=== PATIENT | female | born 1980 | race American Indian/Alaskan Native ===

== ENCOUNTER 2022-01-30 10:48 | Inpatient (IN) | payer SELFPAY ==
[2022-01-30] MEDS ORDERED: ASPIRIN 325 MG TAB PO ONE (12:43)
[2022-01-30] MEDS ORDERED: NITROGLYCERIN 2% OINT 1 GM TP ONE (12:43)
[2022-01-30] MEDS ORDERED: ONDANSETRON 4 MG/2 ML INJ IV ONE (12:48)
[2022-01-30] MEDS ORDERED: fentaNYL 100 MCG/2 ML INJ IV ONE (12:48)
--- NOTE | 2022-01-30 12:54 | Emergency Department Report ---
HPI - General Chief Complaint: Chest Pain Time Seen by Provider: 01/30/22 12:24 - HPI HPI: Room 23 Patient is a 41-year-old female present with a chief complaint of headache and chest pain. The patient states she was at the airport about to return to [place] when she developed a headache with nausea vomiting. The patient states at the airport she had a near syncopal episode and then developed heaviness in her chest associated with feeling clammy. Patient denies shortness of breath but admits to pleurisy. Patient states a few hours ago she developed a nonproductive cough. Patient denies history of fever or rhinorrhea. Patient states she has not been vaccinated against COVID. Patient denies any known sick contacts. Patient states she's never had a stress test or cardiac catheterization. 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 Vocal cord polyps removal - Family History Family history: no significant - Social History Smoking Status: Never Smoker Substance Use Type: None (Denies illicit drug use), Alcohol (Occasional) - Medications Home Medications: Home Medications Medication Instructions Recorded Confirmed Last Taken Type Azithromycin [Zithromax Z-NEELA] 250 mg PO DAILY #6 tablet 10/07/13 Unknown Rx ED Review of Systems ROS: Stated complaint: CHEST HEAVINESS,DIZZINESS,HEADACHE Other details as noted in HPI Constitutional: diaphoresis. denies: fever Eyes: denies: eye pain ENT: denies: throat pain Respiratory: cough. denies: shortness of breath Cardiovascular: chest pain Endocrine: no symptoms reported Gastrointestinal: nausea, vomiting Genitourinary: denies: dysuria Musculoskeletal: denies: back pain Neurological: headache Physical Exam - Physical Exam Vital Signs: Vital Signs 01/30/22 11:03 Temperature 98.6 F Pulse Rate 110 H Respiratory 18 Rate Blood Pressure 191/136 [Right] O2 Sat by Pulse 98 Oximetry Physical Exam: GENERAL: The patient is well-developed well-nourished female lying on stretcher not appearing to be in acute distress. [] HEENT: Normocephalic. Atraumatic. Extraocular motions are intact. Patient has moist mucous membranes. NECK: Supple. No meningitic signs are noted. Trachea midline CHEST/LUNGS: Clear to auscultation. There is no respiratory distress noted. Oc casional cough HEART/CARDIOVASCULAR: Regular. There is tachycardia. There is no gallop rub or murmur. ABDOMEN: Abdomen is soft, nontender. Patient has normal bowel sounds. There is no abdominal distention. SKIN: There is no rash. There is no edema. There is no diaphoresis. NEURO: The patient is awake, alert, and oriented. The patient is cooperative. The patient has no focal neurologic deficits. The patient has normal speech. Cranial nerves II through XII grossly intact. GCS 15 MUSCULOSKELETAL: There is no evidence of acute injury. ED Course Vital Signs 01/30/22 11:03 Temperature 98.6 F Pulse Rate 110 H Respiratory 18 Rate Blood Pressure 191/136 [Right] O2 Sat by Pulse 98 Oximetry - Consultations Consultation #1: 01/30/22 16:56 Case discussed with cardiology-recommends admission for obs and exercise treadmill test in the morning ED Medical Decision Making - Lab Data Result diagrams: 01/30/22 13:35 01/30/22 13:35 Laboratory Tests 01/30/22 01/30/22 01/30/22 13:35 13:35 13:35 WBC 6.6 RBC 4.87 Hgb 13.4 Hct 41.3 MCV 85 MCH 28 MCHC 32 RDW 13.3 Plt Count 216 Lymph % (Auto) 35.5 H Clarke % (Auto) 6.4 Eos % (Auto) 1.8 Baso % (Auto) 1.0 Lymph # (Auto) 2.3 Clarke # (Auto) 0.4 Eos # (Auto) 0.1 Baso # (Auto) 0.1 Seg Neutrophils % 55.3 Seg Neutrophils # 3.6 D-Dimer 196.96 Sodium 141 Potassium 4.5 Chloride 107.7 H Carbon Dioxide 25 Anion Gap 13 BUN 11 Creatinine 0.8 Estimated GFR > 60 BUN/Creatinine Ratio 14 Glucose 105 H Calcium 8.8 Total Creatine Kinase 236 H CK-MB (CK-2) 1.1 CK-MB (CK-2) Rel Index 0.4 Troponin T < 0.010 NT-Pro-B Natriuret Pep 64.50 HCG, Qual SARS-CoV-2 (PCR) 01/30/22 01/30/22 13:35 14:00 WBC RBC Hgb Hct MCV MCH MCHC RDW Plt Count Lymph % (Auto) Clarke % (Auto) Eos % (Auto) Baso % (Auto) Lymph # (Auto) Clarke # (Auto) Eos # (Auto) Baso # (Auto) Seg Neutrophils % Seg Neutrophils # D-Dimer Sodium Potassium Chloride Carbon Dioxide Anion Gap BUN Creatinine Estimated GFR BUN/Creatinine Ratio Glucose Calcium Total Creatine Kinase CK-MB (CK-2) CK-MB (CK-2) Rel Index Troponin T NT-Pro-B Natriuret Pep HCG, Qual Negative SARS-CoV-2 (PCR) Negative - EKG Data -: EKG Interpreted by Me EKG shows normal: sinus rhythm, axis Rate: normal (85 bpm) - EKG Data When compared to previous EKG there are: previous EKG unavailable Interpretation: nonspecific ST-T wave dayna (T wave inversion lead III) - Radiology Data Radiology results: report reviewed (CT head, chest x-ray), image reviewed (CT head, chest x-ray) interpreted by me: Chest x-ray-no definite focal infiltrates, no pneumothorax [facility] [address] [place] [address] Cat Scan Report Signed Patient: LUIS ENRIQUE SEARS MR#: [id number] : 1980 Acct:[id number] Age/Sex: 41 / F ADM Date: 01/30/22 Loc: ED Attending Dr: Ordering Physician: BRAN MARTÍNEZ MD Date of Service: 01/30/22 Procedure(s): CT head/brain wo con Accession Number(s): [id number] cc: BRAN MARTÍNEZ MD CT HEAD WITHOUT CONTRAST INDICATION / CLINICAL INFORMATION: Headache, hypertension. TECHNIQUE: Axial imaging performed from the skull apex through the skull base without the use of contrast. Sagittal and coronal reformatted images. All CT scans at this location are performed using CT dose reduction for ALARA by means of automated exposure control. COMPARISON: None available. FINDINGS: CEREBRAL PARENCHYMA: No significant abnormality. No acute territorial infarct. HEMORRHAGE: None. EXTRA-AXIAL SPACES: Normal in size and morphology for the patient's age. VENTRICULAR SYSTEM: Normal in size and morphology for the patient's age. MIDLINE SHIFT OR HERNIATION: None. CEREBELLUM / BRAINSTEM: No si gnificant abnormality. CALVARIUM: No significant abnormality. ORBITS: Normal as visualized. PARANASAL SINUSES / MASTOID AIR CELLS: Normal as visualized. SOFT TISSUES of HEAD: No significant abnormality. ADDITIONAL FINDINGS: None. IMPRESSION: No acute intracranial abnormality. Signer Name: James Mathsi Jr, MD Signed: 01/30/2022 1:54 PM Workstation Name: [id number] Transcribed By: TTR Dictated By: JAMES MATHIS JR, MD Electronically Authenticated By: JAMES MATHIS JR, MD Signed Date/Time: 01/30/22 1354 DD/ 52 TD/TT: [facility] [address] [place] [address] XRay Report Signed Patient: LUIS ENRIQUE SEARS MR#: [id number] : 1980 Acct:[id number] Age/Sex: 41 / F ADM Date: 01/30/22 Loc: ED Attending Dr: Ordering Physician: BRAN MARTÍNEZ MD Date of Service: 01/30/22 Procedure(s): XR chest 1V ap Accession Number(s): [id number] cc: BRAN MARTÍNEZ MD Fluoro Time In Minutes: CHEST 1 VIEW 01/30/2022 2:29 PM INDICATION / CLINICAL INFORMATION: Cough and chest pain. COMPARISON: None available. FINDINGS: SUPPORT DEVICES: None. HEART / MEDIASTINUM: The heart size and pulmonary vasculature are normal. The aorta is normal in caliber. LUNGS / PLEURA: No significant pulmonary or pleural abnormality. No pneumothorax. ADDITIONAL FINDINGS: No significant additional findings. IMPRESSION: No acute findings. Signer Name: Kirby Molina MD Signed: 01/30/2022 2:43 PM Workstation Name: [id number] Transcribed By: RT Dictated By: Kirby Molina MD Electronically Authenticated By: Kirby Molina MD Sign ed Date/Time: 01/30/22 144 DD/ 41 TD/TT: - Differential Diagnosis Hypertensive urgency, ICH, ACS, PE, GERD, anxiety, coronavirus Critical care attestation.: If time is entered above; I have spent that time in minutes in the direct care of this critically ill patient, excluding procedure time. ED Disposition Clinical Impression: Chest pain, Near syncope Disposition: ADMITTED INPATIENT Is pt being admited?: Yes Does the pt Need Aspirin: Yes Condition: Fair Instructions: Nonspecific Chest Pain, Adult Referrals: PRIMARY CARE,MD [Primary Care Provider] - 3-5 Days Time of Disposition: 16:57 (Care transferred to hospitalist (Dr. Wilson)) Heart Score - HEART Score History: Moderately suspicious EKG: Non-specific Age: < 45 Risk factors: No known risk factors Troponin: < normal limit HEART Score: 2 - EKG Read Time Time EKG Completed: 11:30 EKG Read Time: 11:30
--- NOTE | 2022-01-30 13:59 | Cat Scan Report ---
CT HEAD WITHOUT CONTRAST INDICATION / CLINICAL INFORMATION: Headache, hypertension. TECHNIQUE: Axial imaging performed from the skull apex through the skull base without the use of cont rast. Sagittal and coronal reformatted images. All CT scans at this location are performed using CT dose reduction for ALARA by means of automated exposure control. COMPARISON: None available. FINDINGS: CEREBRAL PARENCHYMA: No significant abnormality. No acute territorial infarct. HEMORRHAGE: None. EXTRA-AXIAL SPACES: Normal in size and morphology for the patient's age. VENTRICULAR SYSTEM: Normal in size and morphology for the patient's age. MIDLINE SHIFT OR HERNIATION: None. CEREBELLUM / BRAINSTEM: No significant abnormality. CALVARIUM: No significant abnormality. ORBITS: Normal as visualized. PARANASAL SINUSES / MASTOID AIR CELLS: Normal as visualized. SOFT TISSUES of HEAD: No significant abnormality. ADDITIONAL FINDINGS: None. IMPRESSION: No acute intracranial abnormality. Signer Name: James Mathis Jr, MD Signed: 01/30/2022 1:54 PM Workstation Name: [id number]
[2022-01-30 14:06] LABS: Basophils # (Auto) 0.1 K/mm3 (0.0-0.1); Eosinophils # (Auto) 0.1 K/mm3 (0.0-0.4); Eosinophils % (Auto) 1.8 % (0.0-4.3); Hematocrit 41.3 % (30.3-42.9); Hemoglobin 13.4 gm/dl (10.1-14.3); Lymphocytes # (Auto) 2.3 K/mm3 (1.2-5.4); Lymphocytes % (Auto) 35.5 % (13.4-35.0); Mean Corpuscular HGB Conc 32 % (30-34); Mean Corpuscular Volume 85 fl (79-97); Monocytes # (Auto) 0.4 K/mm3 (0.0-0.8); Monocytes % (Auto) 6.4 % (0.0-7.3); Platelet Count 216 K/mm3 (140-440); Red Blood Count 4.87 M/mm3 (3.65-5.03); Red Cell Distribution Width 13.3 % (13.2-15.2)
[2022-01-30 14:31] LABS: Creatine Kinase MB 1.1 ng/mL (0.0-4.0)
[2022-01-30 14:33] LABS: BUN/Creatinine Ratio 14; Blood Urea Nitrogen 11 mg/dL (7-17); Calcium 8.8 mg/dL (8.4-10.2); Hemolysis Index 3
--- NOTE | 2022-01-30 14:47 | XRay Report ---
CHEST 1 VIEW 01/30/2022 2:29 PM INDICATION / CLINICAL INFORMATION: Cough and chest pain. COMPARISON: None available. FINDINGS: SUPPORT DEVICES: None. HEART / MEDIASTINUM: The heart size and pulmonary vasculature are normal. The aorta is normal in kim rolanda. LUNGS / PLEURA: No significant pulmonary or pleural abnormality. No pneumothorax. ADDITIONAL FINDINGS: No significant additional findings. IMPRESSION: No acute findings. Signer Name: Kirby Molina MD Signed: 01/30/2022 2:43 PM Workstation Name: [id number]
[2022-01-30] MEDS ORDERED: METOPROLOL TARTRATE 50 MG TAB PO ONE (17:14)
[2022-01-30] MEDS ORDERED: MORPHINE 4 MG/1 ML INJ IV PRN (17:27)
[2022-01-30] MEDS ORDERED: ONDANSETRON 4 MG/2 ML INJ IV PRN (17:27)
[2022-01-30] MEDS ORDERED: ACETAMINOPHEN 325 MG TAB PO PRN (17:27)
[2022-01-30] MEDS ORDERED: ALBUTEROL 2.5 MG/3 ML NEBU IH PRN (17:27)
[2022-01-30] MEDS ORDERED: oxyCODONE /ACETAMINOPHEN 5-325MG TAB PO PRN (17:27)
[2022-01-30] MEDS ORDERED: METOPROLOL TARTRATE 25 MG TAB PO SCH (17:30)
--- NOTE | 2022-01-30 17:31 | Consultation ---
History of Present Illness Consult date: 01/30/22 Requesting physician: BRAN MARTÍNEZ Consult reason: chest pain History of present illness: This is a 41-year-old -[place] female, unknown to our practice, with past medical history significant for migraines who presented via EMS to [facility] today while experiencing an episode of chest pressure, palpitations, presyncope with associated nausea/vomiting while at the airport before flying home to [place]. She reports she woke up this morning with a headache that progressed throughout the day and when at the airport, she went to the restroom and began to vomit and afterward felt heavy chest pressure, palpitations, and felt that she was going to pass out, but did not. She was advised to come to the emergency room. She states she had associated diaphoresis, and the chest pressure was significant. She states it is worse with inspiration and when sitting forward, describes it as pressure/tight/squeezing. She reports slight improvement in her symptoms with nitroglycerin paste in the emergency room. Work-up in the ED thus far has revealed negative D-dimer, negative troponin x1 set, negative head CT and chest x-ray is negative for acute findings. Non smoker. No significant cardiac family history. Cardiology is consulted for chest pain Past History Past Medical History: migraines Past Surgical History: Other (DNC x 2, tubal ligation, vocala surgery, one sided fallopian tube removal ) Social history: denies: smoking Family history: other (mom- sarcoidosis) Medications and Allergies Allergies Allergy/AdvReac Type Severity Reaction Status Date / Time acetaminophen Allergy Rash Verified 10/07/13 13:39 [From Darvocet-N 100] metoclopramide HCl Allergy Rash Verified 10/07/13 13:39 [From Reglan] Penicillins Allergy Rash Verified 10/07/13 13:39 propoxyphene napsylate Allergy Rash Verified 10/07/13 13:39 [From Darvocet-N 100] Home Medications Medication Instructions Recorded Confirmed Last Taken Type Azithromycin [Zithromax Z-NEELA] 250 mg PO DAILY #6 tablet 10/07/13 Unknown Rx Active Meds: Active Medications Metoprolol Tartrate (Metoprolol Tartrate 25 Mg Tab) 12.5 mg PO BID LEYLA Stop: 01/30/22 18:00 Review of Systems All systems: negative Cardiovascular: chest pain, palpitations, lightheadedness, shortness of breath, other (pre syncope) Respiratory: no cough Gastrointestinal: nausea, vomiting, no diarrhea Neurological: headaches Physical Examination Vital Signs Temp Pulse Resp BP Pulse Ox 98.6 F 110 H 18 191/136 98 01/30/22 11:03 01/30/22 11:03 01/30/22 11:03 01/30/22 11:03 01/30/22 11:03 General appearance: mild distress HEENT: Positive: Normocephaly Neck: Positive: trachea midline Cardiac: Positive: Reg Rate and Rhythm, S1/S2. Negative: Audible Murmur Lungs: Positive: clear to auscultation Neuro: Positive: Grossly Intact, Other (c/o migraine) Abdomen: Positive: Soft, Active Bowel Sounds Female genitourinary: deferred Skin: Negative: Rash Extremities: Present: edema (minimal bilateral leg edema. ), warm Results 01/30/22 13:35 01/30/22 13:35 Cardiac Enzymes 01/30/22 Range/Units 13:35 CK-MB (CK-2) 1.1 (0.0-4.0) ng/mL CBC 01/30/22 Range/Units 13:35 WBC 6.6 (4.5-11.0) K/mm3 RBC 4.87 (3.65-5.03) M/mm3 Hgb 13.4 (10.1-14.3) gm/dl Hct 41.3 (30.3-42.9) % Plt Count 216 (140-440) K/mm3 Lymph # (Auto) 2.3 (1.2-5.4) K/mm3 [place] # (Auto) 0.4 (0.0-0.8) K/mm3 Eos # (Auto) 0.1 (0.0-0.4) K/mm3 Baso # (Auto) 0.1 (0.0-0.1) K/mm3 Comprehensive Metabolic Panel 01/30/22 Range/Units 13:35 Sodium 141 (137-145) mmol/L Potassium 4.5 (3.6-5.0) mmol/L Chloride 107.7 H (98-107) mmol/L Carbon Dioxide 25 (22-30) mmol/L BUN 11 (7-17) mg/dL Creatinine 0.8 (0.6-1.2) mg/dL Glucose 105 H (65-100) mg/dL Calcium 8.8 (8.4-10.2) mg/dL - Imaging and Cardiology Echo: pending EKG interpretations - Telemetry EKG Rhythm: Sinus Rhythm - EKG Sinus rhythms and dysrhythmias: sinus rhythm Assessment and Plan Assessment Chest Pain Pre-syncope ? Migraine Elevated Blood pressure EKG-sinus rhythm, 85; no acute ischemic change CXR: 01/30/2022No acute findings Echocardiogram: Pending Stress test: Pending TRD in am. Cath- None. Recommendations/plan Patient presents with chest pain, EKG sinus rhythm without ischemic changes. Troponin is negative x1 set. Telemetry reveals sinus rhythm 80s. Check echocardiogram Check TSH, given palpitations. Check lipid profile. Bilateral Carotid Ultrasounds in setting of pre syncope. Will start low dose BB in setting of CP and elevated BP. Trend trop x3 sets. D-dimer negative. TRD Stress Test in AM. NPO after MN. Recommend migraine treatment per primary team. However, would not recommend Imitrex given chest pain. AM Labs. Continuous telemetry monitoring. Thank you for this consultation, we will follow along with you. Patient seen in conjunction with Dr. Anastacia Osorio who agrees with the assessment and management of this patient. - Patient Problems (1) Chest pain Current Visit: Yes Status: Acute (2) Near syncope Current Visit: Yes Status: Acute
--- NOTE | 2022-01-30 19:59 | History and Physical Report ---
History of Present Illness Date of admission: 01/30/22 17:27 Chief complaint: My chest on hurting History of present illness: 41 YO Female with Obesity, Migraine HELLER presents ED for evaluation. Patient reports "my chest was hurting". Patient states that she was in her usual state of health and awoke from sleep and proceeded to the airport to travel back home to [facility]. Patient states that she experienced a sudden onset of nausea followed by an episode of vomiting which was then followed by a sudden onset of chest pain. Patient states that the pain was 5/10, constant, associated with nausea, diaphoresis, worsened with inspiration and sitting forward, crushing in nature, relieved with rest, worsened with exertion, relieved with nitro. Patient transported to [facility] via private vehicle for further care and evaluation of the aforementioned symptoms. The patient was seen and evaluated in the emergency department. All lab and imaging studies reviewed. Patient found to have clinical symptoms consistent with angina as well as diastolic CHF. Cardiology team consulted. Patient admitted to telemetry. Patient has fever, chills, palpitation, productive cough, unilateral leg swelling, calf pain, individual/family history of DVT/PE/bleeding/blood clotting disorders, or known exposure to COVID-19. No prior admission for review. No medication listed at time of admission for reconciliation. Advanced care planning conducted in ED. Past History Past Medical History: migraines, other (See HPI) Past Surgical History: Other (DNC x 2, tubal ligation, vocala surgery, one sided fallopian tube removal ) Social history: , lives with family. denies: smoking Family history: other (mom- sarcoidosis) Medications and Allergies Allergies Allergy/AdvReac Type Severity Reaction Status Date / Time acetaminophen Allergy Rash Verified 10/07/13 13:39 [From Darvocet-N 100] metoclopramide HCl Allergy Rash Verified 10/07/13 13:39 [From Reglan] Penicillins Allergy Rash Verified 10/07/13 13:39 propoxyphene napsylate Allergy Rash Verified 10/07/13 13:39 [From Darvocet-N 100] Home Medications Medication Instructions Recorded Confirmed Last Taken Type Azithromycin [Zithromax Z-NEELA] 250 mg PO DAILY #6 tablet 10/07/13 Unknown Rx Active Meds: Active Medications Acetaminophen (Acetaminophen 325 Mg Tab) 650 mg PO Q4H PRN PRN Reason: Pain MILD(1-3)/Fever >100.5/HELLER Albuterol (Albuterol 2.5 Mg/3 Ml Nebu) 2.5 mg IH Q4HRT PRN PRN Reason: Shortness Of Breath Famotidine (Famotidine 10 Mg Tab) 10 mg PO BID LEYLA Morphine Sulfate (Morphine 4 Mg/1 Ml Inj) 4 mg IV Q4H PRN PRN Reason: Pain , Severe (7-10) Last Admin: 01/30/22 18:43 Dose: 4 mg Ondansetron HCl (Ondansetron 4 Mg/2 Ml Inj) 4 mg IV Q8H PRN PRN Reason: Nausea And Vomiting Oxycodone/Acetaminophen (Oxycodone /Acetaminophen 5-325mg Tab) 1 tab PO Q6H PRN PRN Reason: Pain, Moderate (4-6) Sodium Chloride (Sodium Chloride 0.9% 10 Ml Flush Syringe) 10 ml IV BID LEYLA Sodium Chloride (Sodium Chloride 0.9% 10 Ml Flush Syringe) 10 ml IV PRN PRN PRN Reason: LINE FLUSH Review of Systems Constitutional: no weight loss, no weight gain, no fever, no chills Ears, nose, mouth and throat: no ear pain, no tinnitis, no nose pain, no sinus pressure Breasts: no change in shape, no swelling, no mass Cardiovascular: chest pain, shortness of breath, dyspnea on exertion, decreased exercise tolerance Gastrointestinal: nausea, vomiting, no abdominal pain Genitourinary Female: no pelvic pain, no flank pain, no dysuria, no urinary frequency, no urgency Rectal: no pain, no incontinence, no bleeding Musculoskeletal: no neck stiffness, no shooting arm pain, no low back pain Integumentary: no rash, no pruritis, no redness, no sores, no wounds Neurological: no head injury, no weakness, no parathesias, no numbness, no tingling, no seizures, no tremors, no ataxia Psychiatric: no anxiety, no change in sleep habits, no hypersomnia, no suicidal ideation, no hallucinations Endocrine: no cold intolerance, no polyphagia, no excessive thirst, no polyd ipsia, no polyuria, no excessive sweating Hematologic/Lymphatic: no easy bruising, no easy bleeding, no lymphedema Allergic/Immunologic: no urticaria, no allergic rhinitis, no persistent infections, no anaphylaxis Exam - Constitutional Vitals: Temp Pulse Resp BP Pulse Ox 98.6 F 85 11 L 157/123 97 01/30/22 11:03 01/30/22 19:00 01/30/22 19:00 01/30/22 19:00 01/30/22 19:00 General appearance: Present: mild distress, obese - EENT Eyes: Present: PERRL ENT: hearing intact, clear oral mucosa - Neck Neck: Present: supple, normal ROM - Respiratory Respiratory effort: normal Respiratory: bilateral: CTA - Cardiovascular Heart Sounds: Present: S1 & S2. Absent: rub, click - Extremities Extremities: pulses symmetrical, No edema Peripheral Pulses: within normal limits - Abdominal General gastrointestinal: Present: soft, non-tender, non-distended, normal bowel sounds Female genitourinary: Present: normal - Integumentary Integumentary: Present: clear, warm, dry - Musculoskeletal Musculoskeletal: gait normal, strength equal bilaterally - Psychiatric Psychiatric: appropriate mood/affect, intact judgment & insight - Neurologic Neurologic: CNII-XII intact, moves all extremities HEART Score - HEART Score EKG: Non-specific Age: < 45 Risk factors: No known risk factors Troponin: Troponin T < 0.010 ng/mL (0.00-0.029) 01/30/22 19:19 Troponin: < normal limit Results - Labs CBC & Chem 7: 01/30/22 13:35 01/30/22 13:35 Labs: Abnormal lab results 01/30/22 01/30/22 Range/Units 13:35 13:35 Lymph % (Auto) 35.5 H (13.4-35.0) % Chloride 107.7 H (98-107) mmol/L Glucose 105 H (65-100) mg/dL Total Creatine Kinase 236 H (30-135) units/L Assessment and Plan - Patient Problems (1) Angina at rest Current Visit: Yes Status: Acute Plan to address problem: ACS protocol: Serial cardiac enzymes, EKG, telemetry, cardiology team consulted. Further care and evaluation as per cardiology team. Morphine, supplemental oxygen, nitro, aspirin. (2) Diastolic CHF Current Visit: Yes Status: Acute Qualifiers: Heart failure chronicity: acute Qualified Code(s): I50.31 - Acute diastolic (congestive) heart failure Plan to address problem: Strict I's/O, monitor urine output every shift, daily weight, afterload reduction, cardiology team consulted. Further care and evaluation as per cardiology team. (3) Obesity (BMI 30-39.9) Current Visit: Yes Status: Acute Plan to address problem: Balanced diet, increase physical activity at discharge, outpatient pulmonary f ollow-up for sleep study. (4) DVT prophylaxis Current Visit: Yes Status: Acute Plan to address problem: SCD to bilateral lower extremities while in bed, patient is ambulatory. (5) Advance care planning Current Visit: Yes Status: Acute Plan to address problem: Disease education conducted, care plan discussed, diagnoses discussed, prognosis discussed, patient is full code. Patient acknowledges understanding and agreement with care plan, +30 minutes. (6) Preventative health care Current Visit: Yes Status: Acute Plan to address problem: Patient counseled regarding balanced diet, increase physical activity discharge, weight reduction, risk factor reduction. Patient informed to follow-up with primary care physician for all age and risk factor appropriate screening tests.
[2022-01-30 20:46] LABS: Chol/HDL Ratio 3.29 %
[2022-01-30] MEDS ORDERED: FAMOTIDINE 10 MG TAB PO SCH (22:00)
[2022-01-31 05:24] LABS: Basophils # (Auto) 0.1 K/mm3 (0.0-0.1); Basophils % (Auto) 1.2 % (0.0-1.8); Eosinophils # (Auto) 0.2 K/mm3 (0.0-0.4); Eosinophils % (Auto) 2.4 % (0.0-4.3); Hematocrit 39.8 % (30.3-42.9); Hemoglobin 13.3 gm/dl (10.1-14.3); Lymphocytes # (Auto) 3.4 K/mm3 (1.2-5.4); Mean Corpuscular HGB Conc 34 % (30-34); Mean Corpuscular Volume 85 fl (79-97); Monocytes # (Auto) 0.6 K/mm3 (0.0-0.8); Platelet Count 198 K/mm3 (140-440); Red Blood Count 4.68 M/mm3 (3.65-5.03); Red Cell Distribution Width 13.7 % (13.2-15.2)
[2022-01-31 05:47] LABS: BUN/Creatinine Ratio 15; Blood Urea Nitrogen 15 mg/dL (7-17); Calcium 8.5 mg/dL (8.4-10.2); Hemolysis Index 14
[2022-01-31 11:37] VITALS: BP 137/83
--- NOTE | 2022-01-31 12:04 | Progress Note ---
Assessment and Plan This is a 41-year-old -[place] Citizen female, unknown to our practice, with past medical history significant for migraines who presented via EMS to [facility] today while experiencing an episode of chest pressure, palpitations, presyncope with associated nausea/vomiting while at the airport before flying home to [place] Chest Pain Pre-syncope ? Migraine Elevated Blood pressure Echo 01/30/2022-EF 50 to 55%. Transmitral Doppler flow pattern suggests impaired relaxation. Right ventricular systolic function is normal. No pericardial effusion Preliminary exercise treadmill stress test 01/31/2022-no signs of ischemia Plan: Patient presents with chest pain, EKG sinus rhythm without ischemic changes. Troponin is negative x3 patient currently chest pain-free and had negative stress test. AMI ruled out Echo results noted above Will start low dose BB in setting of CP and elevated BP. D-dimer negative. Recommend migraine treatment per primary team. In setting of patient being chest pain-free, negative stress, and normal echo patient cardiac status otherwise stable. Will see as needed Patient follow with her primary health navigator in 1 to 2 weeks after discharge Patient seen in conjunction with Dr. Osorio who agrees with the assessment and plan of care. - Patient Problems (1) Chest pain Current Visit: Yes Status: Acute (2) Near syncope Current Visit: Yes Status: Acute (3) Obesity (BMI 30-39.9) Current Visit: Yes Status: Acute Subjective Date of service: 01/31/22 Principal diagnosis: Chest pain, presyncope Interval history: Patient for stress test this a.m. Patient was sinus 70s on monitor with no event Objective Vital Signs Temp Pulse Resp BP BP Pulse Ox 01/31/22 11:34 97.3 F L 68 14 137/83 100 01/31/22 10:00 76 01/31/22 07:44 98.1 F 66 14 134/81 100 01/30/22 23:00 95 01/30/22 22:36 98.5 F 112 H 14 127/80 99 01/30/22 22:00 99 01/30/22 21:46 65 15 147/102 100 01/30/22 21:30 61 14 147/102 100 01/30/22 21:16 63 14 147/102 100 01/30/22 21:00 71 15 147/102 100 01/30/22 20:46 68 15 145/91 100 01/30/22 20:30 68 10 L 145/91 100 01/30/22 20:16 66 13 147/103 100 01/30/22 20:00 79 15 147/103 98 01/30/22 19:46 66 15 155/97 99 01/30/22 19:30 65 23 155/97 100 01/30/22 19:16 71 13 125/67 100 01/30/22 19:00 85 11 L 157/123 97 01/30/22 18:46 79 10 L 170/97 01/30/22 18:42 75 18 170/97 01/30/22 18:16 80 16 156/106 01/30/22 18:00 69 15 156/106 100 01/30/22 17:46 77 17 158/102 100 01/30/22 17:30 76 25 H 158/102 100 01/30/22 17:16 79 13 168/115 100 01/30/22 17:00 79 15 168/115 100 01/30/22 16:46 78 13 123/80 100 01/30/22 16:30 77 19 130/84 01/30/22 16:16 70 22 130/84 01/30/22 16:00 74 20 132/81 01/30/22 15:46 69 19 132/81 01/30/22 15:30 96 H 19 139/88 01/30/22 15:16 68 11 L 139/88 01/30/22 15:08 98 01/30/22 15:07 139/88 01/30/22 15:00 96 H 21 132/84 01/30/22 14:46 81 26 H 132/84 01/30/22 14:30 86 11 L 151/97 01/30/22 14:16 85 18 01/30/22 14:02 68 20 01/30/22 13:30 85 16 - Physical Examination General: No Apparent Distress HEENT: Positive: Normocephaly Neck: Positive: trachea midline Cardiac: Positive: Reg Rate and Rhythm Lungs: Positive: Normal Breath Sounds Neuro: Positive: Grossly Intact, Other (c/o migraine) Abdomen: Positive: Soft, Active Bowel Sounds Skin: Negative: Rash Extremities: Present: upper extr. pulses, warm. Absent: edema - Labs and Meds Cardiac Enzymes 01/30/22 Range/Units 13:35 CK-MB (CK-2) 1.1 (0.0-4.0) ng/mL Lipids 01/30/22 Range/Units 19:19 Triglycerides 67 (2-149) mg/dL Cholesterol 168 (50-199) mg/dL HDL Cholesterol 51 (40-59) mg/dL Cholesterol/HDL Ratio 3.29 % CBC 01/30/22 01/31/22 Range/Units 13:35 04:29 WBC 6.6 7.2 (4.5-11.0) K/mm3 RBC 4.87 4.68 (3.65-5.03) M/mm3 Hgb 13.4 13.3 (10.1-14.3) gm/dl Hct 41.3 39.8 (30.3-42.9) % Plt Count 216 198 (140-440) K/mm3 Lymph # (Auto) 2.3 3.4 (1.2-5.4) K/mm3 [place] # (Auto) 0.4 0.6 (0.0-0.8) K/mm3 Eos # (Auto) 0.1 0.2 (0.0-0.4) K/mm3 Baso # (Auto) 0.1 0.1 (0.0-0.1) K/mm3 Comprehensive Metabolic Panel 01/30/22 01/31/22 Range/Units 13:35 04:29 Sodium 141 138 (137-145) mmol/L Potassium 4.5 3.8 (3.6-5.0) mmol/L Chloride 107.7 H 103.0 (98-107) mmol/L Carbon Dioxide 25 22 (22-30) mmol/L BUN 11 15 (7-17) mg/dL Creatinine 0.8 1.0 (0.6-1.2) mg/dL Glucose 105 H 108 H (65-100) mg/dL Calcium 8.8 8.5 (8.4-10.2) mg/dL - Imaging and Cardiology Echo: pending - EKG Sinus rhythms and dysrhythmias: sinus rhythm
--- NOTE | 2022-01-31 12:32 | Discharge Summary ---
Providers - Providers Date of Admission: 01/30/22 17:27 Date of discharge: 01/31/22 Attending physician: TAMRA DODSON 01/31/22 08:52 Consult to Physician [CONS] Routine Comment: Consulting Provider: KENDRA DURAN Physician Instructions: Reason For Exam: chest pain Primary care physician: SATURATION DIVER Hospitalization Condition: Fair Hospital course: This is a 41-year-old -[place] female, unknown to our practice, with past medical history significant for migraines who presented via EMS to [facility] today while experiencing an episode of chest pressure, palpitations, presyncope with associated nausea/vomiting while at the airport before flying home to [place]. She reports she woke up this morning with a headache that progressed throughout the day and when at the airport, she went to the restroom and began to vomit and afterward felt heavy chest pressure, palpitations, and felt that she was going to pass out, but did not. She was advised to come to the emergency room. She states she had associated diaphoresis, and the chest pressure was significant. She states it is worse with inspiration and when sitting forward, describes it as pressure/tight/squeezing. She reports slight improvement in her symptoms with nitroglycerin paste in the emergency room. Work-up in the ED thus far has revealed negative D-dimer, negative troponin x1 set, negative head CT and chest x-ray is negative for acute findings. Non smoker. No significant cardiac family history. Cardiology is consulted for chest pain Echo 01/30/2022-EF 50 to 55%. Transmitral Doppler flow pattern suggests impaired relaxation. Right ventricular systolic function is normal. No pericardial effusion Preliminary exercise treadmill stress test 01/31/2022-no signs of ischemia Patient presents with chest pain, EKG sinus rhythm without ischemic changes. Troponin is negative x3 patient currently chest pain-free and had negative stress test. AMI ruled out Will start low dose BB in setting of CP and elevated BP. In setting of patient being chest pain-free, negative stress, and normal echo patient cardiac status otherwise stable. Patient follow with her primary manager php in 1 to 2 weeks after discharge Disposition: HOME / SELF CARE / HOMELESS Final Discharge Diagnosis (Prints w/discharge instructions): (1) Chest pain, likely GERD. Current Visit: Yes Status: Acute. (2) Near syncope. Current Visit: Yes Status: Acute. (3) Obesity (BMI 30-39.9). Current Visit: Yes Status: Acute Time spent for discharge: 34 minutes Core Measure Documentation - Palliative Care Palliative Care/ Comfort Measures: Not Applicable - Core Measures Any of the following diagnoses?: none Exam - Physical Exam Narrative exam: GENERAL: well-developed and morbidly obese female lying on bed appeared to be in no discomfort. HEENT: Normocephalic. Atraumatic. No conjunctival congestion or icterus. Patient has moist mucous membranes. NECK: Supple. Trachea midline. CHEST/LUNGS: Clear to auscultated bilaterally, breathing nonlabored. No wheezes crackles or rhonchi. HEART/CARDIOVASCULAR: Regular in rate and rhythm. S1 and S2 positive. ABDOMEN: Abdomen is soft, nontender. Patient has normal bowel sounds. SKIN: There is no rash. Warm and dry. NEURO: No focal motor deficit. Follows command. MUSCULOSKELETAL: No joint effusion or tenderness. EXTRIMITY: No edema, no cyanosis or clubbing. PSYCH: Cooperative. - Constitutional Vitals: Temp Pulse Resp BP Pulse Ox 97.3 F L 68 14 137/83 100 01/31/22 11:34 01/31/22 11:34 01/31/22 11:34 01/31/22 11:34 01/31/22 11:34 Plan Activity: advance as tolerated Weight Bearing Status: Weight Bear as Tolerated Diet: low fat, low salt Follow up with: PRIMARY CARE, [Primary Care Provider] - 3-5 Days KENDRA DURAN MD [Staff Physician] - 7 Days Prescriptions: Metoprolol [Lopressor TAB] 25 mg PO BID #60 tablet Famotidine [Pepcid] 10 mg PO BID #30 tablet
--- NOTE | 2022-01-31 13:55 | Electrocardiograph Report ---
[facility] Test Date: 2022-01-30 Test Time: 11:11:25 Pat Name: LUIS ENRIQUE SEARS Department: Room: A486 Gender: F Elevator Repair Mechanic: ROBINSON : 1980 Requested By: BRAN MARTÍNEZ Order Number: [id number] Reading MD: Larry Rios Measurements Intervals [place] Rate: 85 P: 71 SC: 137 QRS: 73 QRSD: 88 T: 3 QT: 357 QTc: 424 Interpretive Statements Sinus rhythm Probable left atrial enlargement No previous ECG available for comparison Electronically Signed On 01-31-2022 13:55:07 EDT by Larry Rios
--- NOTE | 2022-01-31 16:22 | Vascular Lab Report ---
DUPLEX DOPPLER ULTRASOUND CAROTID, BILATERAL INDICATION / CLINICAL INFORMATION: pre syncope. COMPARISON: None available. FINDINGS: RIGHT CAROTID: No significant atherosclerotic plaque. - PLAQUE ESTIMATE (%): None. - CCA velocity: 86 cm/sec. - ICA peak systolic velocity: 120 cm/sec. - ICA/CCA PSV Ratio: Less than 2. Right Vertebral Artery: Antegrade flow. LEFT CAROTID: No significant atherosclerotic plaque. - PLAQUE ESTIMATE (%): None. - CCA velocity: 83 cm/sec. - ICA peak systolic velocity: 96 cm/sec. - ICA/CCA PSV Ratio: Less than 2. Left Vertebral Artery: Antegrade flow. IMPRESSION: 1. Right Internal Carotid Artery: Normal. No stenosis. 2. Left Internal Carotid Artery: Normal. No stenosis. Velocity criteria are extrapolated from diameter data as defined by the Society of Radiologists in Ul trasound Consensus Conference, Radiology 2003; 229;340-346. NO STENOSIS (NORMAL) - Plaque = none; ICA PSV < 125 cm/sec; ICA/CCA PSV Ratio < 2.0 <50% STENOSIS - Plaque < 50%; ICA PSV < 125 cm/sec; ICA/CCA PSV Ratio < 2.0 50-69% STENOSIS - Plaque > 50%; ICA PSV = 125-230 cm/sec; ICA/CCA PSV Ratio = 2.0-4.0 >70% BUT <100% STENOSIS - Plaque > 50%; ICA PSV > 230 cm/sec; ICA/CCA PSV Ratio > 4.0 NEAR OCCLUSION - Plaque = visible lumen; ICA PSV = high/low/none; ICA/CCA PSV Ratio = variable TOTAL OCCLUSION - Plaque = no lumen; ICA PSV = none; ICA/CCA PSV Ratio = N/A Scribed by: Lisseth Smith RDMS, RVT, RMSKS Scribed: 01/31/2022 1:11 PM I have reviewed the images, agree with this report, and edited this report as needed. Signer Name: Khoi Ward MD Signed: 01/31/2022 4:13 PM Workstation Name: [id number]
--- NOTE | 2022-02-01 02:30 | Treadmill Report ---
DATE OF SERVICE: 01/31/2022 TREADMILL STRESS TEST REFERRING PHYSICIAN: Hospitalist service. PROTOCOL: The patient was assessed in a postabsorptive state, exercised on a standard [place] protocol treadmill. Resting blood pressure was 120/82. The patient's baseline EKG is unremarkable. The patient exercised on a standard [place] protocol for nearly 7 minutes. No chest pain, no shortness of breath. No arrhythmias. No diagnostic ST changes, arrhythmias, or chest pain during stress or recovery. Appropriate heart rate response in recovery. Peak heart rate is 158, peak blood pressure is 160/79. CONCLUSIONS: 1. Normal exercise stress test without evidence of diagnostic ST changes, arrhythmias, or chest pain during stress or recovery. 2. Appropriate heart rate/blood pressure response in recovery. TID: [id number] RECEIPT: [id number] ROBERT
== END 2022-01-31 16:20 | disposition home or self-care (01) | DRG 391 ==
LOC: ED 10:48 → 4A 17:27
PROVIDERS: ADMIT Internal Medicine; ATTEND Internal Medicine
DX: K21.9 Gastro-esophageal reflux disease without esophagitis (principal); I50.31 Acute diastolic (congestive) heart failure; R07.9 Chest pain, unspecified; I20.8 Other forms of angina pectoris; E66.9 Obesity, unspecified; G43.909 Migraine, unspecified, not intractable, without status migrainosus; Z68.36 Body mass index [BMI] 36.0-36.9, adult; Z20.822 Contact with and (suspected) exposure to COVID-19
CPT/HCPCS: 36415; 70450; 71045; 80048; 80061; 82550; 82553; 83880; 84443; 84484; 84703; 85025; 85379; 93005; 93017; 93306; 93880; G0378; C8929; J2270; J2405; J3010; U0003